=== PATIENT | male | born 1950 | race Hispanic/Latino ===

== ENCOUNTER 2016-08-09 17:50 | Emergency (ER) | payer OTHER ==
[2016-08-09 17:59] VITALS: BP 145/88; PULSE 67; RESP 18; TEMP 97.9; O2SAT 97
--- NOTE | 2016-08-09 18:49 | C.PDOC ---
History Of Present Illness 66 yr old male presents to the ER for evaluation of right sided tongue swelling and tingling sensation, gradually develop 1 hr ago while eating pizza. Patient reports, symptoms were localized only to tongue, " felt weird sensation in my tongue". Patient states the symptoms started to improve with time. Otherwise, Patient denies any other active complaints at present time, denies headache, dizziness, vertigo, N/V, visual changes, focal deficits, chest pain, SOB, dyspnea, palpitation, throat swelling, wheezing, abd. pain, abck pain, peripheral swelling. Pt denies previous of of food allergies. Ambulate to ED for evaluation, not in any apparent distress Time Seen by Provider: 08/09/16 18:26 Chief Complaint (Nursing): Abnormal Skin Integrity History Per: Patient History/Exam Limitations: no limitations Onset/Duration Of Symptoms: Gradual (1hr ago) Current Symptoms Are (Timing): Better Past Medical History Reviewed: Historical Data, Nursing Documentation, Vital Signs Vital Signs: Last Vital Signs Temp 97.9 F 08/09/16 17:55 Pulse 67 08/09/16 17:55 Resp 18 08/09/16 17:55 BP 145/88 08/09/16 17:55 Pulse Ox 97 08/09/16 19:43 - Medical History PMH: Hyperlipidemia - [facility] Procedures CLOSURE SKIN & SUBCUTANEOUS NEC (12/10/12) Family History: States: No Known Family Hx - Social History Hx Tobacco Use: No Hx Alcohol Use: Yes Hx Substance Use: No - Immunization History Hx Tetanus Toxoid Vaccination: Yes Hx Influenza Vaccination: Yes Hx Pneumococcal Vaccination: No Review Of Systems Except As Marked, All Systems Reviewed And Found Negative. ENT: Negative for: Throat Swelling Cardiovascular: Negative for: Chest Pain Respiratory: Negative for: Shortness of Breath, Wheezing Gastrointestinal: Negative for: Nausea, Vomiting Neurological: Negative for: Headache Physical Exam - Physical Exam Appears: Well, Non-toxic, No Acute Distress Skin: Normal Color, Warm, No Rash Eye(s): bilateral: Normal Inspection, PERRL, EOMI Nose: Normal, No Flaring, No Discharge Oral Mucosa: Moist, No Drooling Tongue: Normal Appearing, No Swelling, Other (tongue is midline, no fasciculation) Lips: Normal Appearing, No Swelling Throat: Normal, No Erythema, No Exudate, No Drooling Neck: Trachea Midline, Supple Chest: Symmetrical Cardiovascular: Rhythm Regular Respiratory: No Decreased Breath Sounds, No Accessory Muscle Use, No Stridor, No Wheezing Gastrointestinal/Abdominal: Soft, No Tenderness Extremity: No Pedal Edema Neurological/Psych: Oriented x3, Normal Speech, Normal Cognition, Normal Cranial Nerves, Cerebellar Signs, Normal Motor, Normal Sensation, Normal Reflexes ED Course And Treatment O2 Sat by Pulse Oximetry: 97 Pulse Ox Interpretation: Normal Progress Note: On re-evaluation, pt is afebrile, hemodynamicaly stable. Non- toxic. PuseOx 97% RA. ENT: no acute findings. neck: (-) meningeal sign. Lungs: CTA B/L, BS equal B/L. Abd: benign. Neurologicaly intact. Discussed with pt reg. differential including stroke, TIA . Imaging offered at present time in this low risk case, pt refused. Again, pt remained nurologicaly intact at all time. Pt advisedto F/U with PMD in 1-2 days for re-evaluatoin, imaging as need. return to ED at any time if any worsening or new changes. Medical Decision Making Medical Decision Making: PLAN: * Benadryl PO * Pepcid PO * Prednisone PO Disposition Counseled Patient/Family Regarding: Diagnosis, Need For Followup, Rx Given - Disposition Referrals: [facility] [Outside] Disposition: HOME/ ROUTINE Disposition Time: 18:48 Condition: STABLE Additional Instructions: Take medication as prescribed Avoid food possible cause allergy Observe 24-48 hrs for any new changes-return to ED immediately for re- evaluation. Follow up with PMD in 1-2 days for re-evaluation, imaging and further testing as need. 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 - Scribe Statement The provider has reviewed the documentation as recorded by the Scribe Michelle Crowell All medical record entries made by the Scribe were at my direction and personally dictated by me. I have reviewed the chart and agree that the record accurately reflects my personal performance of the history, physical exam, medical decision making, and the department course for this patient. I have also personally directed, reviewed, and agree with the discharge instructions and disposition.
== END 2016-08-09 19:00 | disposition home or self-care (01) ==
LOC: C.ER 17:50
DX: T78.3XXA Angioneurotic edema, initial encounter (principal)